=== PATIENT | female | born 1985 | race Caucasian/White ===

== ENCOUNTER 2016-05-01 16:15 | Observation (INO) | payer BC ==
[~2016-05-01] VITALS: Ht 165.1 cm; Wt 123.0 kg
[~2016-05-01 16:15] MED LIST: HYDR-4074 PO; IBUP-1724 PO; LEVO1TAB76 PO; LORA10TA62 PO; ONDA4TAB10 PO
[2016-05-01 16:25] VITALS: PULSE 100
[2016-05-01] MEDS ORDERED: LR 1,000 ML IV SCH ×3 (16:45→21:49)
[2016-05-01] MEDS: LR 1,000 ML IV SCH ×3 (16:57→22:48)
[2016-05-01 16:59] LABS: BLOOD, URINE NEGATIVE (NEGATIVE); COLOR,URINE YELLOW (YELLOW); LEUKOCYTE ESTERASE ,URINE TRACE (NEGATIVE); NITRITE,URINE NEGATIVE (NEGATIVE); UROBILINOGEN,URINE 0.2 EU/DL (NORMAL)
[2016-05-01 17:04] LABS: HCT - HEMATOCRIT 34.7 % (36-46); MEAN CORPUSCULAR HGB 32.3 UUG (26-34); MEAN CORPUSCULAR HGB CONC(MCHC 34.6 GM/DL (31-37); MEAN CORPUSCULAR VOLUME 93.5 UM3 (80-100); MEAN PLATELET VOLUME 10.1 UM3 (9.4-12.4); RED BLOOD COUNT 3.71 M/MM3 (4.00-5.20); WBC - WHITE BLOOD COUNT 16.1 T/MM3 (4.5-11.0)
[2016-05-01 17:08] LABS: ANION GAP 8 MEQ/L (5-15); BUN/CREATININE RATIO 8 RATIO (6-26); CALCIUM 9.3 MG/DL (8.4-10.2); CHLORIDE 109 MEQ/L (98-107); CO2 - CARBON DIOXIDE 20 MEQ/L (22-30); CREATININE 0.5 MG/DL (0.7-1.2); GLOMERULAR FILTRATION RATE 144; GLUCOSE 115 MG/DL (65-110); POTASSIUM 3.5 MEQ/L (3.6-5); SODIUM 137 MEQ/L (134-144)
[2016-05-01 17:19] LABS: BAND NEUTROPHILS # 0.5 T/MM3; NEUTROPHILS #(MANUAL)-ABSOLUTE 13.7 T/MM3 (1.8-7.7); TOTAL CELLS COUNTED 100 %
[2016-05-01] MEDS ORDERED: DiphenhydrAMINE 25 MG CAPSULE PO ONE (19:00)
[2016-05-01] MEDS: ACETAMINOPHEN 500 MG TABLET PO PRN (20:12)
[2016-05-01 21:29] VITALS: Ht 165.1 cm; Wt 123.0 kg
--- NOTE | 2016-05-01 21:31 | NUR ---
ADMIT: PT WAS ADMITTED TO MEDICAL UNIT BY WHEEL CHAIR FROM MATERNAL CHILD UNIT. PT IS A&OX3, ON RA, AND UP AT MATTHEW. VITAL SIGNS TAKEN, ADMISSION QUESTIONS ANSWERED, AND IV FLUIDS RUNNING.
[2016-05-01 21:43] VITALS: BP 95/47; PULSE 127; RESP 22; TEMP 99; O2SAT 96
--- NOTE | 2016-05-01 21:49 | NUR ---
PHYSICIAN COMMUNICATION Dr Dyer ordered current bag of IVF rate change from 125 ML/HR to bolus remainder of current bag at 999 ML/HR and then continue to infuse LR at rate of 125 ML/HR.
[2016-05-01] MEDS ORDERED: LR 1,000 ML IV ONE (21:50)
[2016-05-01 22:07] VITALS: PULSE 126
[2016-05-02 00:20] VITALS: BP 115/63; PULSE 109; RESP 22; TEMP 96.9; O2SAT 97
[2016-05-02] MEDS ORDERED: FAMO-137 PO (00:24)
[2016-05-02] MEDS ORDERED: CETI10CA19 PO (00:24)
[2016-05-02] MEDS ORDERED: PNV#1COM14 PO (00:24)
[2016-05-02] MEDS ORDERED: ALBU0.63 AEROSOL (00:24)
[2016-05-02 04:00] VITALS: BP 111/68; PULSE 101; RESP 20; TEMP 96.4; O2SAT 98
--- NOTE | 2016-05-02 05:19 | NUR ---
SHIFT SUMMARY: PT IS A&OX3, COOPERATIVE AND PLEASANT, ON RA, DENIES PAIN OR CONTRACTIONS, Q4 VITALS TAKEN, HOURLY ROUNDING, IV FLUIDS RUNNING (LR), SLEPT WELL DURING THE NIGHT, IS UP AT MATTHEW TO THE BATHROOM. CALL LIGHT WITHIN REACH.
[2016-05-02] MEDS: ACETAMINOPHEN 500 MG TABLET PO PRN (06:17)
--- NOTE | 2016-05-02 06:17 | NUR ---
TYLENOL: PT REQUESTED TYLENOL FOR BODY ACHES (4/10 PAIN LEVEL). WILL CONTINUE TO MONITOR. PT DENIES SOA, N/V.
[2016-05-02] MEDS: LR 1,000 ML IV SCH (06:54)
[2016-05-02 08:00] VITALS: BP 116/71; PULSE 100; RESP 20; TEMP 97.5; O2SAT 99
[2016-05-02] MEDS ORDERED: ALBU6.7H INH (08:05)
--- NOTE | 2016-05-02 11:26 | NUR ---
no co voiced Dr Dyer here dc iv and iv fluids dc instructions reviewed dc per ambulatory to home.
--- NOTE | 2016-05-04 16:06 | NUR ---
FOLLOW UP CALL ATTEMPT LEFT MESSAGE AT THIS TIME.
[2016-05-08] MEDS ORDERED: NITR100C4 PO (11:32)
== END 2016-05-02 10:46 | disposition home or self-care (01) ==
LOC: OBOBS 16:15 → MC 16:15 → OBOBS 19:10 → MED 21:31
PROVIDERS: ADMIT Obstetrics & Gynecology; ATTEND Obstetrics & Gynecology
DX: O99.89 Other specified diseases and conditions complicating pregnancy, childbirth and the puerperium (principal); R50.9 Fever, unspecified; O99.820 Streptococcus B carrier state complicating pregnancy; O99.513 Diseases of the respiratory system complicating pregnancy, third trimester; J45.990 Exercise induced bronchospasm; Z79.899 Other long term (current) drug therapy; Z3A.37 37 weeks gestation of pregnancy
CPT/HCPCS: 36415; 80048; 81003; 85025; 87086; 87147; 87186; 87486; 87581; 87633; 87798; 96360; 96361; 99218; J7120

== ENCOUNTER 2016-05-13 16:00 | Inpatient (IN) | payer BC ==
[~2016-05-13] VITALS: Ht 165.1 cm; Wt 121.0 kg
[~2016-05-13 16:00] MED LIST changes: +ALBU6.7H INH; +CETI10CA19 PO; +FAMO-137 PO; -HYDR-4074 PO; -IBUP-1724 PO; -LEVO1TAB76 PO; -LORA10TA62 PO; +NITR100C4 PO; -ONDA4TAB10 PO; +PNV#1COM14 PO
--- OUTSIDE RECORDS SUMMARY | 2016-05-14 16:15 | XMS REPORT | Continuity of Care Document ---
Author Author [facility] Organization [facility] Address Unknown Phone Unavailable Support Name Relationship Address Phone INEZ WHITLEY MD Caregiver Unknown Unavailable IKER RIOS MD Caregiver [address] [place] [address] Unavailable CINTHIA WORTHY Next Of Kin [address] [place] [address] Insurance Providers Guarantor Weston Worthy Address [address] [place] [id number] Email [email or web address] Policy Number [id number] Subscriber's Name Cinthia Worthy Relationship 01 Spouse Group Number [id number] Advance Directives Directive Response Recorded Date/Time Advanced Directives Type None 06/19/13 9:42am Ordered Resuscitation Status Full Code 06/19/13 8:28am Resuscitation Documents on File No 06/19/13 9:42am DPOA for Healthcare Only N 05/01/16 9:58pm Living Will No 05/01/16 9:58pm Problems Active Problems Medical Problem Onset Date Status Left ureteral calculus Unknown Acute Left ureteral calculus Unknown Acute Medications Current Home Medications Medication Dose Units Route Directions Days Qty Instructions Start Date Albuterol Sulfate (Proventil Hfa 90 Mcg/Actuation) 200 Puff/6.7 G Inha 1 Puff Inhalation Every 4 Hours as needed for Asthma 05/02/16 Cetirizine Hcl (Zyrtec) 10 Mg Capsule 1 Cap Oral Daily as needed for Prn Orders 05/02/16 Famotidine (Pepcid) 20 Mg Tablet 1 Tab Oral Daily as needed for Prn Orders 05/02/16 Pnv#75/Iron Fum/Fa/Om3/Dha/Epa (One A Day Dha Pack) 1 Each Combo..pkg 1 Oral One To Two Times A Day 30 Days 05/02/16 Past Home Medications Medication Directions Ordered Status Acetaminophen/Hydrocodone Bitart ([place] 7.5-325 Tablet) 1 Each Tablet, 1-2 Tab Oral Every 6 Hours as needed for Pain 10/27/13 Discontinued Ibuprofen 200 Mg Tablet, 2 Tab Oral As Needed 11/01/13 Discontinued Ondansetron (Ondansetron Odt) 4 Mg Tab.rapdis, 4 Mg Oral Q6h/0300,0900,1500, 2100 for Nausea &/Or Vomiting 10/27/13 Discontinued Social History Social History Problem Response Recorded Date/Time Onset Date Status Reason for Hospitalization fever 05/02/2016 11:12am Not Applicable Not Applicable Hx Substance Use No 10/31/2013 2:20pm Not Applicable Not Applicable Hx Alcohol Use No 10/31/2013 2:20pm Not Applicable Not Applicable Has the pt used tobacco in the last 12 months No 10/31/2013 2:20pm Not Applicable Not Applicable Tobacco Usage none 10/29/2013 8:37pm Not Applicable Not Applicable Query Response Start Date Stop Date Smoking Status Never smoker Hospital Discharge Instructions Instructions: Care Instructions: I was in the hospital because (patient own words): I WAS RUNNING A FEVER, CHILLS, BODY ACHES - [facility] SAID TO COME IN Discharge Diet: General diet Discharge Activity: No heavy lifting more than 10 lbs. Follow Up Appointments: Follow up with Dr. Rios as scheduled. Pending Lab / Results: No Pending Lab Expected Signs/Symptoms: None Notify Physician If: you have any high grade fever, chest pain, shortness of breath, vaginal bleeding, decreased movement. During Business Hours:: Please call the physician's office at [phone]. After Business Hours:: Please call [phone] and have the coal cutting machine operator page the physician. Pain Management/Treatment: Tylenol as needed. Wound/Incision Care: None Condition at time of discharge: Good Plan of Care Discharge Date 05/02/16 10:46am Disposition 01 DISCHARGED HOME, SELF-CARE Prescriptions See Medication Section Care Plan and Goals See Discharge Instructions Section Functional Status Query Response Date Recorded Mobility Status Ambulatory May 01, 2016 9:30pm Assistive Devices None May 01, 2016 9:30pm Activity Limitations None May 01, 2016 9:30pm Feeding Ability Independent May 01, 2016 9:30pm Toileting Ability Independent May 01, 2016 9:30pm Grooming Ability Independent May 01, 2016 9:30pm Dressing Ability Independent May 01, 2016 9:30pm Driving Ability Independent May 01, 2016 9:30pm Housework Ability Independent May 01, 2016 9:30pm Meal Preparation Ability Independent May 01, 2016 9:30pm Stair Climbing Ability Independent May 01, 2016 9:30pm Ability to complete ADL's impeded by No change May 01, 2016 9:58pm Cognitive/Perceptual Impairments None May 01, 2016 9:30pm Preferred Method of Learning Reading Listening May 01, 2016 9:30pm Allergies, Adverse Reactions, Alerts No known allergies. Immunizations Query Response on File Recorded Date/Time Hx Influenza Vaccination Y NOVEMBER 2015 05/01/16 10:02pm Hx Pneumococcal Vaccination N NOT SURE 05/01/16 10:02pm Hx Tetanus, Diptheria, Pertussis Y given at [facility] 04-26-13 10/27/13 3:07pm Hx Influenza Vaccination Y NOVEMBER 2015 05/01/16 10:02pm Hx Tetanus, Diptheria, Pertussis Y given at [facility] 04-26-13 10/27/13 3:07pm Vital Signs Acute Vital Signs Vital Response Date/Time Temperature (Fahrenheit) 97.5 deg F (96.8 - 99.1) 05/02/2016 8:00am Temperature (Calculated Celsius) 36.23403 degrees C (36.0 - 37.3) 05/02/2016 8:00am Pulse Rate (adult) 100 bpm (60 - 100) 05/02/2016 8:00am Respiratory Rate 20 breaths/min (10 - 20) 05/02/2016 8:00am O2 Sat by Pulse Oximetry 99 % (90 - 100) 05/02/2016 8:00am Oxygen Delivery Method Room Air 05/02/2016 8:00am Blood Pressure 116/71 mm Hg 05/02/2016 8:00am Blood Pressure Source Automatic Cuff 05/02/2016 8:00am Height (Feet) 5 feet 05/01/2016 9:29pm Height (Inches) 5.00 inches 05/01/2016 9:29pm Weight (Kilograms) 123.000 kg 05/01/2016 9:29pm Body Mass Index (BMI) 45.1 05/01/2016 9:29pm Results Laboratory Results Test Name Result Units Flags Reference Collection Date/Time Result Date/ Time Comments White Blood Count 16.1 T/MM3 H 4.5-11.0 05/01/2016 4:52pm 05/01/2016 5: 11pm Red Blood Count 3.71 M/MM3 L 4.00-5.20 05/01/2016 4:52pm 05/01/2016 5: 11pm Hemoglobin 12.0 GM/DL 12-16 05/01/2016 4:52pm 05/01/2016 5:11pm Hematocrit 34.7 % L 36-46 05/01/2016 4:52pm 05/01/2016 5:11pm Mean Corpuscular Volume 93.5 UM3 80-100 05/01/2016 4:52pm 05/01/2016 5: 11pm Mean Corpuscular Hemoglobin 32.3 UUG 26-34 05/01/2016 4:52pm 2016 5:11pm Mean Corpuscular Hemoglobin Concent 34.6 GM/DL 31-37 05/01/2016 4:52pm 05/01/2016 5:11pm RDW Standard Deviation 45.2 FL 36.9-50.2 05/01/2016 4:52pm 05/01/2016 5 :11pm Platelet Count 204 T/MM3 130-400 05/01/2016 4:52pm 05/01/2016 5:11pm Mean Platelet Volume 10.1 UM3 9.4-12.4 05/01/2016 4:52pm 05/01/2016 5: 11pm Neutrophils % (Manual) 85.0 % H 33-66 05/01/2016 4:52pm 05/01/2016 5: 19pm Band Neutrophils % 3.0 % 0-6 05/01/2016 4:pm 05/01/2016 5:19pm Lymphocytes % (Manual) 6.0 % L 23-45 05/01/2016 4:52pm 05/01/2016 5: 19pm Monocytes % (Manual) 6.0 % 0-9.0 05/01/2016 4:pm 05/01/2016 5:19pm Band Neutrophils # 0.5 T/MM3 05/01/2016 4:52pm 05/01/2016 5:19pm Absolute Neutrophils (Manual) 13.7 T/MM3 H 1.8-7.7 05/01/2016 4:52pm 5:19pm Lymphocytes # (Manual) 1.0 T/MM3 1-4.8 05/01/2016 4:52pm 05/01/2016 5: 19pm Monocytes # (Manual) 1.0 T/MM3 H 0-0.8 05/01/2016 4:52pm 05/01/2016 5: 19pm Red Cell Morphology Comment NORMAL 05/01/2016 4:52pm 05/01/2016 5: 19pm Icterus Index < 2 0-7 05/01/2016 4:pm 05/01/2016 5:08pm Chemistry Specimen Hemolysis < 15 0-25 05/01/2016 4:52pm 05/01/2016 5 :08pm 0-25: Specimen Exhibited No Hemolysis. Turbidity < 20 0-20 05/01/2016 4:pm 05/01/2016 5:08pm Sodium Level 137 MEQ/L 134-144 05/01/2016 4:pm 05/01/2016 5:08pm Potassium Level 3.5 MEQ/L L 3.6-5 05/01/2016 4:05/01/2016 5:08pm Chloride Level 109 MEQ/L H 98-107 05/01/2016 4:pm 05/01/2016 5:08pm Carbon Dioxide Level 20 MEQ/L L 22-30 05/01/2016 4:pm 05/01/2016 5: 08pm Anion Gap 8 MEQ/L 5-15 05/01/2016 4:pm 05/01/2016 5:08pm Blood Urea Nitrogen 4.0 MG/DL L 7-17 05/01/2016 4:pm 05/01/2016 5: 08pm Creatinine 0.5 MG/DL L 0.7-1.2 05/01/2016 4:05/01/2016 5:08pm BUN/Creatinine Ratio 8 RATIO 6-26 05/01/2016 4:pm 05/01/2016 5:08pm Glomerular Filtration Rate Calc 144 05/01/2016 4:pm 05/01/2016 5: 08pm Glucose Level 115 MG/DL H 65-110 05/01/2016 4:52pm 05/01/2016 5:08pm Calculated Osmolality 262 MOSM/KG 261-280 05/01/2016 4:52pm 05/01/2016 5:08pm Calcium Level 9.3 MG/DL 8.4-10.2 05/01/2016 4:52pm 05/01/2016 5:08pm Adenovirus (PCR) NEGATIVE NEGATIVE 05/01/2016 4:47pm 05/01/2016 6: 28pm Coronavirus Type 229E (PCR) NEGATIVE NEGATIVE 05/01/2016 4:47pm 05/01 6:28pm Coronavirus Type HKU1 (PCR) NEGATIVE NEGATIVE 05/01/2016 4:47pm 05/01 6:28pm Coronavirus Type NL63 (PCR) NEGATIVE NEGATIVE 05/01/2016 4:47pm 05/01 6:28pm Coronavirus Type OC43 (PCR) NEGATIVE NEGATIVE 05/01/2016 4:47pm 05/01 6:28pm Human Metapneumovirus (PCR) NEGATIVE NEGATIVE 05/01/2016 4:47pm 05/01 6:28pm Enterovirus/Rhinovirus (PCR) NEGATIVE NEGATIVE 05/01/2016 4:47pm 6:28pm Influenza Virus Type A (PCR) NEGATIVE NEGATIVE 05/01/2016 4:47pm 6:28pm Influenza Virus Type B (PCR) NEGATIVE NEGATIVE 05/01/2016 4:47pm 6:28pm Parainfluenza Type 1 (PCR) NEGATIVE NEGATIVE 05/01/2016 4:47pm 2016 6:28pm Parainfluenza Type 2 (PCR) NEGATIVE NEGATIVE 05/01/2016 4:47pm 2016 6:28pm Parainfluenza Type 3 (PCR) NEGATIVE NEGATIVE 05/01/2016 4:47pm 2016 6:28pm Parainfluenza Type 4 (PCR) NEGATIVE NEGATIVE 05/01/2016 4:47pm 2016 6:28pm Respiratory Syncytial Virus (PCR) NEGATIVE NEGATIVE 05/01/2016 4:47pm 05/01/2016 6:28pm Bordetella parapertussis DNA (PCR) NEGATIVE NEGATIVE 05/01/2016 4: 47pm 05/01/2016 6:28pm Chlamydia pneumoniae DNA (PCR) NEGATIVE NEGATIVE 05/01/2016 4:47pm 6:28pm Mycoplasma pneumoniae (PCR) NEGATIVE NEGATIVE 05/01/2016 4:47pm 05/01 6:28pm Urine Collection Type CLEANCATCH-MIDSTREAM 05/01/2016 4:50pm 2016 4:59pm Urine Color YELLOW YELLOW 05/01/2016 4:50pm 05/01/2016 4:59pm Urine Turbidity SL CLOUDY CLEAR 05/01/2016 4:50pm 05/01/2016 4:59pm Urine Specific [place] <=1.005 L 1.015-1.025 05/01/2016 4:50pm 2016 4:59pm Urine pH 6.0 5.0-8.0 05/01/2016 4:50pm 05/01/2016 4:59pm Urine Leukocyte Esterase TRACE A NEGATIVE 05/01/2016 4:50pm 2016 4:59pm Urine Nitrite NEGATIVE NEGATIVE 05/01/2016 4:50pm 05/01/2016 4:59pm Urine Protein NEGATIVE NEGATIVE 05/01/2016 4:50pm 05/01/2016 4:59pm Urine Glucose (UA) NEGATIVE NEGATIVE 05/01/2016 4:50pm 05/01/2016 4: 59pm Urine Ketones 3+ A NEGATIVE 05/01/2016 4:50pm 05/01/2016 4:59pm Urine Urobilinogen 0.2 EU/DL NORMAL 05/01/2016 4:50pm 05/01/2016 4: 59pm Urine Bilirubin NEGATIVE NEGATIVE 05/01/2016 4:50pm 05/01/2016 4: 59pm Urine Blood NEGATIVE NEGATIVE 05/01/2016 4:50pm 05/01/2016 4:59pm Urinalysis Comment MICROSCOPIC NOT IND. 05/01/2016 4:50pm 2016 4:59pm Microbiology Results Procedure Source Organism/Result Collection Date/Time Result Date/Time Result Status Urine Culture Urine, Clean Catch-Midstream STREP AGALACTIAE - (GROUP B) 4:50pm 05/02/2016 12:50pm Preliminary Procedures No known history of procedures. Encounters Encounter Location Arrival/Admit Date Discharge/Depart Date Attending Provider Discharged Inpatient (obs) [facility] 05/01/16 7:10pm 05/02/16 10 :46am IKER RIOS MD
[2016-05-14] MEDS ORDERED: LR 1,000 ML IV PRN (16:17)
[2016-05-14] MEDS ORDERED: MAG-AL + SIM LIQUID 30 ML UDC PO PRN (16:30)
[2016-05-14] MEDS ORDERED: ZOLPIDEM 5 MG TABLET PO PRN (16:30)
[2016-05-14] MEDS ORDERED: ACETAMINOPHEN 500 MG TABLET PO PRN (16:30)
[2016-05-14] MEDS ORDERED: CALCIUM CARBONATE 500mg Chewable TAB PO PRN (16:30)
[2016-05-14] MEDS ORDERED: LIDOCAINE 1% (10mg/ml) 2ml SDV ID PRN (16:30)
[2016-05-14 16:43] LABS: HCT - HEMATOCRIT 36.6 % (36-46); HGB - HEMOGLOBIN 12.4 GM/DL (12-16); MEAN CORPUSCULAR HGB CONC(MCHC 33.9 GM/DL (31-37); MEAN CORPUSCULAR VOLUME 94.3 UM3 (80-100); MEAN PLATELET VOLUME 9.7 UM3 (9.4-12.4); RED BLOOD COUNT 3.88 M/MM3 (4.00-5.20); WBC - WHITE BLOOD COUNT 9.8 T/MM3 (4.5-11.0)
[2016-05-14] MEDS ORDERED: DINOPROSTONE 10 MG VAGINAL INSERT VAGINALLY ONE (17:00)
[2016-05-14] MEDS ORDERED: DiphenhydrAMINE 25 MG CAPSULE PO PRN (17:00)
[2016-05-14] MEDS ORDERED: TERBUTALINE 1 MG/ML INJECTION SQ PRN (17:00)
[2016-05-14 17:10] VITALS: BP 120/77; PULSE 106; RESP 16; O2SAT 98
--- NOTE | 2016-05-14 17:29 | ANESOB ---
Epidural/ Date/Time DATE: 05/14/16 TIME: 17:24 Preop Diagnosis , induction LGA Procedure: Labor Epidural Plan: Epidural, Spinal, GETA Height: 5 ' 5.00 " Weight: 265.000 kg BMI: kg/m2 Blood Pressure: 120/77 Heart Rate: 116 Respiratory Rate: 20 SaO2: 98 NPO since: mn P:1 Heart Rate: 144 Medications & Allergies Inpatient Medications Current Medications Medications (Trade) Dose Ordered Sig/Jerilyn Start Time Stop Time Status Last Admin Dose Admin Acetaminophen/ Hydrocodone Bitart ([place] 5/325) 1-2 tabs every 4 hours ... Q4H PRN 05/14/16 16:30 Zolpidem Tartrate (AMBIEN 5mg) 1-2 Tabs HS PRN 05/14/16 16:30 Lidocaine HCl 0.2 mg 0.2 mg PRN PRN 05/14/16 16:30 Lactated Ringer's (Lactated Ringers) 1,000 ml @ 0 mls/hr Q0M PRN 05/14/16 16:17 Acetaminophen (Tylenol Extra Strength) 1-2 TABS = 500-1,000 MG Q4H PRN 05/14/16 16:30 Al Hydroxide/Mg Hydroxide (Maalox) 30 ml Q4H PRN 05/14/16 16:30 Calcium Carbonate (TUMS Regular Strength) 1-2 TABS Q2H PRN 05/14/16 16:30 Diphenhydramine HCl (Benadryl) 50 mg HS PRN 05/14/16 17:00 Terbutaline Sulfate (Brethine) 0.25 mg PRN PRN 05/14/16 17:00 Albuterol Sulfate (Proventil HFA 90 mcg/actuation) 200 Puff/6.7 G Inha, 1 PUFF INH Q4H PRN for ASTHMA, (Reported) Last Taken: on 04/24/16 1500 Cetirizine HCl (Zyrtec) 10 Mg Capsule, 1 CAP PO DAILY PRN for PRN ORDERS, (Reported) Last Taken: on 05/07/16 2100 Famotidine (Pepcid) 20 Mg Tablet, 1 TAB PO DAILY PRN for PRN ORDERS, (Reported) Last Taken: on 05/13/16 0700 Pnv#75/Iron Fum/FA/Om3/Dha/Epa (One A Day Dha Pack) 1 Each Combo..pkg, 1 PO 1-2XD, (Reported) Last Taken: on 05/14/16 0900 Discontinued Medications Nitrofurantoin Monohyd/M-Cryst (Macrobid 100 mg Capsule) 100 Mg Capsule, 1 CAP PO BIDWM, (Reported) Take 2 (100 mg) capsules, by mouth, twice daily with meals. Last Taken: on 05/08/16 0900 Coded Allergies: No Known Allergies (Unverified , 05/08/16) Medical/Surgical History Anesthesia PMH: Reports: Asthma, Obesity (morbidly obese), Other (history of jaw surgery.) Smoking Status: Never smoker Does patient use chewing tobac: No Second Hand Exposure: No Substance Use Type: does not use Alcohol Intake: none Anesthesia Adverse Reactions: FOUND none Family Hx of Anesthesia Advers: none Hx of Motion Sickness: No Complications During : Yes Pertinent Findings Laboratory Tests 05/14/16 16:40 Physical Exam Respiratory: Bilat breath sounds equal, Lungs clear Cardiovascular: Regular rate, rhythm Airway Assessment Mallampati Score: II TMD: 3 Fingerbreadths Neck Extension: Fair Teeth: Other (hsitory of jaw surgery) Overall Assessment: May Be Diff Intubation (small mouth opening, jaw surgery with plates) ASA: 3 Discussion Discussed risks/options/alternatives of anesthesia. Patient consents. Nursing pain assessment noted. Present for Discussion: Present: Family Member Attestation Statement Prior to the delivery of any anesthetic medication, I examined the patient, developed the plan, obtained the patient's consent and discussed the risk and benefits of the procedure with the patient/guardian. If the note happens to be signed after anesthesia start time, it is only due to providing efficient care of the patient and documenting at a time when the computer is available. CINTHIA CERDA CRNA May 14, 2016 17:27
[2016-05-14] MEDS ORDERED: AMPICILLIN 2 G in NORMAL SALINE 100 ML IV ONE (20:00)
[2016-05-14] MEDS: AMPICILLIN 1 G in NORMAL SALINE 100 ML IV SCH (23:39)
[2016-05-15] MEDS: AMPICILLIN 1 G in NORMAL SALINE 100 ML IV SCH ×2 (03:29→08:47)
[2016-05-15] MEDS ORDERED: D5LR 1,000 ML IV PRN (04:00)
[2016-05-15] MEDS ORDERED: OXYTOCIN 30 UNIT in D5LR 500 ML SCH (04:00)
[2016-05-15] MEDS ORDERED: DiphenhydrAMINE 50 MG/ML INJECTION IV PRN (09:15)
[2016-05-15] MEDS ORDERED: ROPIVACAINE 1% 200 MG, SUFENTANIL 50 MCG in NORMAL SALINE 80 ML EPI PRN (09:15)
[2016-05-15] MEDS ORDERED: NALOXONE 0.4mg/ml INJECTION IV PRN (09:15)
[2016-05-15] MEDS ORDERED: ONDANSETRON 4mg/2ml INJECTION IV PRN ×2 (09:15→19:30)
[2016-05-15] MEDS ORDERED: AMPICILLIN 1 G in NORMAL SALINE 100 ML IV SCH (10:30)
[2016-05-15] MEDS ORDERED: CITRIC ACID/SODIUM CITRATE 30 ML PO ONE (12:30)
[2016-05-15] MEDS ORDERED: FAMOTIDINE 20mg IVPB 50 ML IV ONE (12:30)
[2016-05-15] MEDS ORDERED: CEFAZOLIN 2 GM in D5W 50ml 2 GM in D5W 50 ML IV ONE ×2 (12:30)
[2016-05-15] MEDS ORDERED: CEFAZOLIN 1 G in NORMAL SALINE 100 ML IV ONE (12:30)
[2016-05-15] MEDS ORDERED: CEFAZOLIN 2 GM in D5W 50ml 50 ML IV ONE (12:45)
[2016-05-15] MEDS ORDERED: MORPHINE SULFATE PF 5mg/10ml VL (DURAMORPH) ONE (13:14)
[2016-05-15] MEDS ORDERED: OXYTOCIN 30 UNIT in D5LR 500 ML IV SCH (13:35)
[2016-05-15 13:41] VITALS: RESP 20; O2SAT 98
[2016-05-15] MEDS: D5LR 1,000 ML IV SCH ×2 (13:41→16:36)
[2016-05-15] MEDS ORDERED: HYDROCORTISONE 2.5% CREAM 30 GM RECTALLY PRN (13:45)
[2016-05-15] MEDS ORDERED: MILK OF MAGNESIA 30 ML SUSP PO PRN (13:45)
[2016-05-15] MEDS ORDERED: POM ALBUTEROL HFA INHALER 8gm ORAL INH PRN (13:45)
[2016-05-15] MEDS: IBUPROFEN 800 MG TABLET PO PRN ×2 (15:18→22:43)
[2016-05-15] MEDS: HYDROCODONE/APAP 5 mg/325 mg TABLET PO PRN (15:24)
--- NOTE | 2016-05-15 17:05 | ANESPO ---
Post-Op Note Date 05/15/16 Time: 17:05 Status Pt Participated in Evaluation: Pt participated in person Vital Signs Date Time Temp Pulse Resp B/P Pulse Ox O2 Delivery O2 Flow Rate FiO2 05/15/16 13:41 20 98 05/15/16 13:13 Room Air 05/14/16 17:10 106 120/77 Respiratory Function: Airway patent Cardiovascular Function: Regular pulse Mental Status: Alert/oriented Pain Level Intensity: 0 Hydration: Taking po fluids Complications during Recovery None apparent Follow-Up Instructions Instructions Per Surgeon YANELY MAYES CRNA May 15, 2016 17:05
[2016-05-15 18:45] VITALS: BP 110/65; PULSE 78; RESP 16; TEMP 98.4; O2SAT 98
[2016-05-15 18:59] LABS: HGB - HEMOGLOBIN 11.9 GM/DL (12-16); MEAN CORPUSCULAR HGB 32.2 UUG (26-34); MEAN CORPUSCULAR VOLUME 94.6 UM3 (80-100); RED BLOOD COUNT 3.7 M/MM3 (4.00-5.20); WBC - WHITE BLOOD COUNT 14.3 T/MM3 (4.5-11.0)
[2016-05-15] MEDS: SIMETHICONE 80 MG CHEWABLE TABLET PO CHEW SCH ×2 (19:51→22:00)
[2016-05-15 22:30] VITALS: BP 108/63; PULSE 77; RESP 16; TEMP 98.3; O2SAT 96
--- NOTE | 2016-05-15 23:04 | NUR ---
Urine Output: RN emptied duran catheter after four hours at 2245. Urine output-100 ml of concentrated urine. Pitocin infusion turned off at 2044. D5LR continues to infuse at 100 ml/hr. Pt. has consumed oral fluids throughout the shift. RN started 500 ml bolus from LR bag. Will continue to monitor.
[2016-05-16 01:00] VITALS: BP 115/69; PULSE 78; RESP 16; TEMP 98.2; O2SAT 100
--- NOTE | 2016-05-16 01:14 | NUR ---
Output: RN assesses urine output via duran catheter after two hours- 125 ml out. Urine still concentrated in appearance. D5LR continues to infuse at 100 ml/hr. Will continue to monitor.
--- NOTE | 2016-05-16 02:43 | NUR ---
Shift summary: VSS. Fundus is firm with small lochia. Incision dressing is dry and intact. SCD's and pulse oximeter remain on. Pt. continues to receive D5LR @ 100 ml/hr for urine output (see previous notes). Pt. is tolerating regular diet and fluids. Pt. had mild nausea at beginning of shift. Nausea controlled with Zofran 4 mg. Pain controlled with Ibuprofen 800 mg and [place] 5/325 mg. Pericare provided late last evening. Pt. stood at bedside and walked around room for half an hour. supportive and at bedside. Attentive to infant needs.
--- NOTE | 2016-05-16 03:20 | NUR ---
Pt requested to take off SCDs for a few hours while she sleeps. Stated "It's difficult for me to relax while they are on." RN removed SCD sleeves, will reapply later in AM.
[2016-05-16 06:00] VITALS: BP 113/71; PULSE 69; RESP 16; TEMP 97.5; O2SAT 100
--- NOTE | 2016-05-16 08:52 | OPNOTEF ---
DATE OF OPERATION 05/15/2016 PREOPERATIVE DIAGNOSES 1. A 30-year-old 2, para 1, at 39 weeks gestational age. 2. Suspected macrosomia. 3. Arrest of descent. POSTOPERATIVE DIAGNOSES 1. A 30-year-old 2, para 1, at 39 weeks gestational age. 2. Suspected macrosomia. 3. Arrest of descent. PROCEDURE Primary low transverse section. SURGEON Dr. Anabella Delong. INDUSTRIAL INSULATOR Laine Dyer MD ANESTHESIA Epidural by DESTINI Zavala. COMPLICATIONS None. EBL 700 mL. FINDINGS Viable female infant, cephalic OP position, clear fluids. Apgars 8, 9. Weight 4562 grams. Name: "Esther." Normal-appearing uterus, tubes, and ovaries. INDICATIONS Rachel came in last evening for Lockett bulb cervical ripening due to suspected macrosomia. We had a long discussion in clinic last week about attempting an induction versus scheduling a primary . She has previously had an 8-pound baby vaginally, so she wanted to try for a vaginal delivery. This morning she was started on Pitocin. Her membranes were ruptured artificially returning clear fluids. She received an epidural. She progressed quickly throughout labor to complete dilation. She pushed for two hours and never descended past +2 station. I already told her I would not do an operative vaginal delivery due to prolonged descent. She was ready for a at this point. DESCRIPTION OF PROCEDURE The patient was taken back to the operating room where her epidural was brought up to adequate surgical levels. She already had a Lockett catheter in place. She was prepared and draped in the normal sterile fashion. A Pfannenstiel skin incision was made 2 cm above the symphysis pubis and carried down to the fascia. The fascia was incised in the midline and extended laterally with the Bailey scissors. The fascia was elevated and the underlying rectus muscles were dissected off. The peritoneum was entered with a combination of blunt and sharp dissection. This was extended superiorly and inferiorly with good visualization of the bladder. The bladder blade was inserted. Bladder flap was created sharply with the Metzenbaum scissors, and the bladder blade was reinserted. The lower uterine segment was incised in a transverse fashion layer by layer with the scalpel and bluntly extended. The infant's head was deeply wedged in the pelvis, and I could not reach the top of the head. One of the nurses pushed the head up vaginally until I could reach it. The head was then delivered atraumatically. The nose and mouth were suctioned. The cord was clamped and cut. The was handed to Dr. Perez, who was asked to attend due to suspected macrosomia and the unscheduled surgery. The placenta delivered spontaneously. The uterus was exteriorized and cleared of all clots and debris. She had a small right extension. I closed the left half of the uterus in a running locked manner with [address] Dyer then closed the extension and the rest of the right half of the uterine incision. Good hemostasis was noted. She had a small right paratubal cyst that was removed with the cautery. The uterus was returned to the abdomen. The gutters were cleared of all clots and debris. The uterine incision was inspected one final time and still noted to be hemostatic. The peritoneum was closed with running 2-0 Vicryl. Hemostasis was obtained in the rectus muscles with the cautery. The fascia was closed with running 0 Vicryl. Hemostasis was obtained in the subcutaneous tissue with cautery. Michael's fascia was closed with running 2-0 chromic. The skin was closed with 4-0 Vicryl in a subcuticular manner with a Chuck needle. Steri-Strips were placed. Sponge, sharp, and instrument counts were correct. The patient tolerated the procedure well and was taken to the recovery room in good condition. JENELLE
[2016-05-16] MEDS: SIMETHICONE 80 MG CHEWABLE TABLET PO CHEW SCH ×4 (09:11→22:14)
[2016-05-16] MEDS: DOCUSATE CALCIUM 240 MG CAPSULE PO SCH (09:11)
[2016-05-16] MEDS: D5LR 1,000 ML IV SCH ×2 (09:35→19:35)
[2016-05-16] MEDS: IBUPROFEN 800 MG TABLET PO PRN ×2 (10:19→18:49)
[2016-05-16 10:30] VITALS: BP 116/66; PULSE 86; RESP 14; TEMP 98.1; O2SAT 97
--- NOTE | 2016-05-16 11:35 | PNPDOC ---
Progress Note PPD1 Rubella: Immune GBS: Positive Blood Type:A pos Subjective 05/16/16 Lochia: Minimal Pain: Controlled Voiding: Voiding Nausea and Vomiting: No Nausea/Vomiting Objective Vital Signs Date Time Temp Pulse Resp B/P Pulse Ox O2 Delivery O2 Flow Rate FiO2 05/16/16 10:30 98.1 86 14 116/66 97 Room Air General: Alert and Oriented Abdomen: Fundus Firm, Non-tender Incision: Clean/Dry/Intact, No Erythema Laboratory Item Value Date Time Hemoglobin 12.4 GM/DL 05/14/16 1640 Hemoglobin 11.9 GM/DL L 05/15/16 1852 Assessment SP, Primary C/S Plan Routine Care, Continue PNV INEZ WHITLEY MD May 16, 2016 11:35
[2016-05-16 14:16] VITALS: BP 98/63; PULSE 80; RESP 16; TEMP 98.1; O2SAT 99
--- NOTE | 2016-05-16 14:27 | NUR ---
Shift Summary: Patient doing well, VSS and pain well controlled with oral pain medications. Lockett catheter removed in AM, patient has voided successfully since removal. Dressing removed, incision open to air, no signs of infection noted. Patient ambulates without difficulty, SCDs DCd. Patient is tolerating oral fluids and eating without difficulty, pt has showered. well, using nipple shield brought from home. is supportive and at bedside for assistance. Good bonding noted with infant.
[2016-05-16 18:53] VITALS: BP 115/68; PULSE 89; RESP 18; TEMP 98.6; O2SAT 97
--- NOTE | 2016-05-16 20:15 | NUR ---
discussed with mother. mother reports that it is going ok, will latch on but nursing is becoming more painful. mother has been using a nipple shield off and on. infant has not seemed content after some feedings so they have been supplementing with formula as needed. mother questions whether she should start pumping or not, educated on need for pumping regularly when using nipple shield or supplementing with formula. patient stated understanding. at this time patient would like to wait and use her own pump tomorrow. discussed importance of hand expression for 5-10 minutes each breast after every feeding. duran cup taken into room. mother stated understanding. will continue to monitor and educate.
[2016-05-16 22:16] VITALS: BP 125/69; PULSE 82; RESP 16; TEMP 97.4; O2SAT 97
--- NOTE | 2016-05-17 00:57 | NUR ---
Chart Check 24 hour chart check completed
[2016-05-17] MEDS: HYDROCODONE/APAP 5 mg/325 mg TABLET PO PRN ×2 (01:16→10:51)
[2016-05-17 01:20] VITALS: BP 123/75; PULSE 78; RESP 18; TEMP 96.7; O2SAT 98
--- NOTE | 2016-05-17 03:51 | NUR ---
shift summary VSS, fundus firm, lochia scant. patient performing all cares for self and . going ok, using a nipple shield at times. discussed importance of skin to skin and hand expression after feedings. ibuprofen and norco administered for pain. patient denies further needs or complaints.
[2016-05-17] MEDS: IBUPROFEN 800 MG TABLET PO PRN (05:46)
[2016-05-17 05:59] VITALS: BP 135/77; PULSE 83; RESP 16; TEMP 98.3; O2SAT 98
--- NOTE | 2016-05-17 08:32 | PNPDOC ---
Progress Note PPD2 Rubella: Immune GBS: Positive Blood Type:A pos Subjective 05/17/16 Lochia: Minimal Pain: Controlled Voiding: Voiding Nausea and Vomiting: No Nausea/Vomiting Objective Vital Signs Date Time Temp Pulse Resp B/P Pulse Ox O2 Delivery O2 Flow Rate FiO2 05/17/16 05:59 98.3 83 16 135/77 98 Room Air General: Alert and Oriented Abdomen: Fundus Firm, Non-tender, Soft Incision: Clean/Dry/Intact, No Erythema Assessment SP, Primary C/S Plan Routine Care, Discharge Home (pt highly desires d/c home today instead of tomorrow), Continue PNV INEZ WHITLEY MD May 17, 2016 08:31
[2016-05-17] MEDS ORDERED: IBUP-1547 PO (08:35)
[2016-05-17] MEDS ORDERED: DOCU-168 PO (08:35)
[2016-05-17] MEDS ORDERED: HYDR-4246 PO (08:35)
[2016-05-17 08:49] VITALS: BP 110/65; PULSE 85; RESP 16; TEMP 98.5; O2SAT 98
[2016-05-17] MEDS: DOCUSATE CALCIUM 240 MG CAPSULE PO SCH (09:12)
[2016-05-17] MEDS: SIMETHICONE 80 MG CHEWABLE TABLET PO CHEW SCH ×2 (09:12→13:00)
--- NOTE | 2016-05-17 15:11 | NUR ---
SHIFT SUMMARY VSS. FUNDUS FIRM, LOCHIA SCANT. ABDOMINAL BINDER. PERFORMS OWN PERICARE. PAIN CONTROLLED WITH IBUPROFEN 800MG AND NORCO 5/325MG. TOLERATED REGULAR DIET. BREAST FEEDING WELL X2. PROVIDED ALL BABY CARES. DISCHARGED HOME.
== END 2016-05-17 14:38 | disposition home or self-care (01) | DRG 765 ==
LOC: MC 05-14 16:10
PROVIDERS: ADMIT Obstetrics & Gynecology; ATTEND Obstetrics & Gynecology
PROC: 0UQ90ZZ Repair Uterus, Open Approach (ICD-10-PCS; 2016-05-15)
PROC: 0UB50ZZ Excision of Right Fallopian Tube, Open Approach (ICD-10-PCS; 2016-05-15)
PROC: 3E033VJ Introduction of Other Hormone into Peripheral Vein, Percutaneous Approach (ICD-10-PCS; 2016-05-15)
PROC: 10907ZC Drainage of Amniotic Fluid, Therapeutic from Products of Conception, Via Natural or Artificial Opening (ICD-10-PCS; 2016-05-15)
PROC: 10D00Z1 Extraction of Products of Conception, Low, Open Approach (ICD-10-PCS; principal; 2016-05-15 12:54)
DX: O62.1 Secondary uterine inertia (principal); Z68.41 Body mass index [BMI] 40.0-44.9, adult; O63.1 Prolonged second stage (of labor); O36.63X0 Maternal care for excessive fetal growth, third trimester, not applicable or unspecified; O34.83 Maternal care for other abnormalities of pelvic organs, third trimester; N83.8 Other noninflammatory disorders of ovary, fallopian tube and broad ligament; O32.8XX0 Maternal care for other malpresentation of fetus, not applicable or unspecified; O99.824 Streptococcus B carrier state complicating childbirth; O99.214 Obesity complicating childbirth; E66.9 Obesity, unspecified; Z3A.38 38 weeks gestation of pregnancy; Z37.0 Single live birth
CPT/HCPCS: 36415; 85027; 86850; 86900; 86901; 99464

== ENCOUNTER 2016-05-29 11:08 | Inpatient (IN) | payer BC ==
[~2016-05-29] VITALS: Ht 165.1 cm; Wt 110.8 kg
[~2016-05-29 11:08] MED LIST changes: +DOCU-168 PO; +HYDR-4246 PO; +IBUP-1547 PO; -NITR100C4 PO
--- OUTSIDE RECORDS SUMMARY | 2016-05-29 11:13 | XMS REPORT | Continuity of Care Document ---
Author Author [facility] Organization [facility] Address Unknown Phone Unavailable Support Name Relationship Address Phone INFECTION, CONTROL Caregiver [address] [place] [address] [place] [address] Unavailable CINTHIA CAMACHO Next Of Kin [address] [address] Insurance Providers Guarantor Weston Camacho Address [address] [place] [id number] Email [email or web address] Policy Number [id number] Subscriber's Name Cinthia Camacho Relationship 01 Spouse Group Number [id number] Advance Directives Directive Response Recorded Date/Time Advanced Directives Type None 06/19/13 9:42am Ordered Resuscitation Status Full Code 06/19/13 8:28am Resuscitation Documents on File No 06/19/13 9:42am Problems Active Problems Medical Problem Onset Date [...] Daily as needed for Prn Orders 05/02/16 Docusate Sodium (Colace) 100 Mg Capsule 1 Cap Oral Twice A Day for Stool Softening 30 Capsule 05/17/16 Famotidine (Pepcid) 20 Mg Tablet 1 Tab Oral Daily as needed for Prn Orders 05/02/16 Hydrocodone/Acetaminophen ([place] 5-325 Tablet) 5-325 Tablet 1-2 Tab Oral Every 4 Hours as needed for Pain 30 Tablet 05/17/16 Ibuprofen 800 Mg Tablet 800 Mg Oral Every 8 Hours as needed for Pain 60 Tablet 05/17/16 Pnv#75/Iron Fum/Fa/Om3/Dha/Epa (One A Day Dha Pack) 1 Each Combo..pkg 1 Oral One To Two Times A Day 30 Days 05/02/16 Past Home Medications Medication Directions Ordered Status Acetaminophen/Hydrocodone Bitart ([place] 7.5-325 Tablet) 1 Each Tablet, 1-2 Tab Oral Every 6 Hours as needed for Pain 10/27/13 Discontinued Ibuprofen 200 Mg Tablet, 2 Tab Oral As Needed 11/01/13 Discontinued Nitrofurantoin Monohyd/M-Cryst (Macrobid 100 Mg Capsule) 100 Mg Capsule, 1 Cap Oral Twice Daily With Meals 05/08/16 Discontinued Ondansetron (Ondansetron Odt) 4 Mg Tab.rapdis, 4 Mg Oral Q6h/0300,0900,1500, 2100 for Nausea &/Or Vomiting 10/27/13 Discontinued Social History Social History Problem Response Recorded Date/Time Onset Date Status Hx Substance Use No 05/08/2016 11:32am Not Applicable Not Applicable Hx Alcohol Use No 10/31/2013 2:20pm Not Applicable Not Applicable Has the pt used tobacco in the last 12 months No 05/08/2016 11:32am Not Applicable Not Applicable Tobacco Usage none 10/29/2013 8:37pm Not Applicable Not Applicable Query Response Start Date Stop Date Smoking Status Never smoker Hospital Discharge Instructions Current inpatient/outpatient. Discharge instructions are currently unavailable. Plan of Care Current inpatient/outpatient. The plan of care is currently unavailable Functional Status No functional status results. Allergies, Adverse Reactions, Alerts No known allergies. Immunizations Query Response on File Recorded Date/Time Hx Influenza Vaccination Y NOVEMBER 2015 05/01/16 10:02pm Hx Pneumococcal Vaccination N NOT SURE 05/01/16 10:02pm Hx Tetanus, Diptheria, Pertussis Y given at [facility] 04-26-13 10/27/13 3:07pm Hx Influenza Vaccination Y NOVEMBER 2015 05/01/16 10:02pm Hx Tetanus, Diptheria, Pertussis Y given at [facility] 04-26-13 10/27/13 3:07pm Influenza Vaccine Hx November 2015 @ [facility] 05/08/16 11:32am Tdap Vaccine Hx March 2016 @ [facility] 05/08/16 11:32am Vital Signs Acute Vital Signs Vital Response Date/Time Temperature (Fahrenheit) 98.5 deg F (96.8 - 99.1) 05/17/2016 8:49am Temperature (Calculated Celsius) 36.96795 degrees C (36.0 - 37.3) 05/17/2016 8:49am Pulse Rate (adult) 85 bpm (60 - 100) 05/17/2016 8:49am Respiratory Rate 16 breaths/min (10 - 20) 05/17/2016 8:49am O2 Sat by Pulse Oximetry 98 % (90 - 100) 05/17/2016 8:49am Oxygen Delivery Method Room Air 05/17/2016 8:49am Blood Pressure 110/65 mm Hg 05/17/2016 8:49am Blood Pressure Source Automatic Cuff 05/17/2016 8:49am Height (Feet) 5 feet 05/15/2016 12:13pm Height (Inches) 5.00 inches 05/15/2016 12:13pm Weight (Kilograms) 121.040 kg 05/15/2016 12:13pm Body Mass Index (BMI) 45.1 05/01/2016 9:29pm Results Laboratory Results Test Name Result Units Flags Reference Collection Date/Time Result Date/ Time Comments White Blood Count 14.3 T/MM3 D H 4.5-11.0 05/15/2016 6:52pm 05/15/2016 7: 08pm Red Blood Count 3.70 M/MM3 L 4.00-5.20 05/15/2016 6:52pm 05/15/2016 7: 08pm Hemoglobin 11.9 GM/DL L 12-16 05/15/2016 6:52pm 05/15/2016 7:08pm Hematocrit 35.0 % L 36-46 05/15/2016 6:52pm 05/15/2016 7:08pm Mean Corpuscular Volume 94.6 UM3 80-100 05/15/2016 6:52pm 05/15/2016 7: 08pm Mean Corpuscular Hemoglobin 32.2 UUG 26-34 05/15/2016 6:52pm 2016 7:08pm Mean Corpuscular Hemoglobin Concent 34.0 GM/DL 31-37 05/15/2016 6:52pm 05/15/2016 7:08pm RDW Standard Deviation 45.3 FL 36.9-50.2 05/15/2016 6:52pm 05/15/2016 7 :08pm Platelet Count 274 T/MM3 130-400 05/15/2016 6:52pm 05/15/2016 7:08pm Mean Platelet Volume 10.0 UM3 9.4-12.4 05/15/2016 6:52pm 05/15/2016 7: 08pm Neutrophils % (Manual) 85.0 % H 33-66 05/01/2016 4:52pm 05/01/2016 5: 19pm Band Neutrophils % 3.0 % 0-6 05/01/2016 4:52pm 05/01/2016 5:19pm Lymphocytes % (Manual) 6.0 % L 23-45 05/01/2016 4:52pm 05/01/2016 5: 19pm Monocytes % (Manual) 6.0 % 0-9.0 05/01/2016 4:52pm 05/01/2016 5:19pm Band Neutrophils # 0.5 T/MM3 05/01/2016 4:52pm 05/01/2016 5:19pm Absolute Neutrophils (Manual) 13.7 T/MM3 H 1.8-7.7 05/01/2016 4:52pm 5:19pm Lymphocytes # (Manual) 1.0 T/MM3 1-4.8 05/01/2016 4:52pm 05/01/2016 5: 19pm Monocytes # (Manual) 1.0 T/MM3 H 0-0.8 05/01/2016 4:52pm 05/01/2016 5: 19pm Red Cell Morphology Comment NORMAL 05/01/2016 4:52pm 05/01/2016 5: 19pm Icterus Index < 2 0-7 05/01/2016 4:52pm 05/01/2016 5:08pm Chemistry Specimen Hemolysis < 15 0-25 05/01/2016 4:52pm 05/01/2016 5 :08pm 0-25: Specimen Exhibited No Hemolysis. Turbidity < 20 0-20 05/01/2016 4:52pm 05/01/2016 5:08pm Sodium Level 137 MEQ/L 134-144 05/01/2016 4:52pm 05/01/2016 5:08pm Potassium Level 3.5 MEQ/L L 3.6-5 05/01/2016 4:52pm 05/01/2016 5:08pm Chloride Level 109 MEQ/L H 98-107 05/01/2016 4:52pm 05/01/2016 5:08pm Carbon Dioxide Level 20 MEQ/L L 22-30 05/01/2016 4:52pm 05/01/2016 5: 08pm Anion Gap 8 MEQ/L 5-15 05/01/2016 4:52pm 05/01/2016 5:08pm Blood Urea Nitrogen 4.0 MG/DL L 7-17 05/01/2016 4:52pm 05/01/2016 5: 08pm Creatinine 0.5 MG/DL L 0.7-1.2 05/01/2016 4:52pm 05/01/2016 5:08pm BUN/Creatinine Ratio 8 RATIO 6-05/01/2016 4:52pm 05/01/2016 5:08pm Glomerular Filtration Rate Calc 144 05/01/2016 4:52pm 05/01/2016 5: 08pm Glucose Level 115 MG/DL [...] CLEAR 05/01/2016 4:50pm 05/01/2016 4:59pm Urine Specific Belle <=1.005 L 1.015-1.025 05/01/2016 4:50pm 2016 4:59pm [...] Result Status Urine Culture Urine, Clean Catch-Midstream DIPHTHEROID BACILLUS 05/01/2016 4:50pm 05/03/2016 2:02pm Final STREP AGALACTIAE - (GROUP B) 05/01/2016 4:50pm 05/03/2016 2:02pm Final Procedures Procedure Status Date Provider(s) section Completed 05/15/16 IKER RIOS MD Encounters Encounter Location Arrival/Admit Date Discharge/Depart Date Attending Provider Registered Referred [facility] 05/15/16 1:32pm INFECTION, CONTROL Discharged Inpatient [facility] 05/14/16 4:10pm 05/17/16 2:38pm IKER RIOS MD Discharged Inpatient (obs) [facility] 05/01/16 7:10pm 05/02/16 10 :46am IKER RIOS MD
--- NOTE | 2016-05-29 11:16 | NUR ---
ARRIVAL AMBULATORY TO ROOM 130 WITH SPOUSE. O2 RA. PATIENT AND SPOUSE ORIENTED TO SURROUNDINGS.
[2016-05-29 11:22] VITALS: Ht 165.1 cm; Wt 110.8 kg
[2016-05-29 11:25] VITALS: BP 113/69; PULSE 101; RESP 18; TEMP 97.1; O2SAT 93
[2016-05-29 11:43] LABS: MRSA SPECIMEN NASAL
[2016-05-29] MEDS: NORMAL SALINE 1,000 ML IV SCH ×2 (11:43→20:31)
[2016-05-29] MEDS: CEFTRIAXONE 2 G in NORMAL SALINE 100 ML IV SCH (11:44)
[2016-05-29 11:53] VITALS: PULSE 101; RESP 18
[2016-05-29] MEDS: CLINDAMYCIN 900 MG in D5W 50 ML IV SCH ×2 (12:41→20:31)
[2016-05-29 13:10] LABS: BASOPHILS % (AUTO) 0.2 % (0-2); EOSINOPHILS % (AUTO) 0.3 % (0-4); HCT - HEMATOCRIT 35.1 % (36-46); HGB - HEMOGLOBIN 11.5 GM/DL (12-16); IMMATURE GRANULOCYTE # (AUTO) 0.02 T/MM3 (0.00-0.03); IMMATURE GRANULOCYTE % (AUTO) 0.2 % (0.0-0.5); LYMPHOCYTES # (AUTO) 1.4 T/MM3 (1-4.8); LYMPHOCYTES % (AUTO) 12.3 % (23-45); MEAN CORPUSCULAR HGB 30.6 UUG (26-34); MEAN CORPUSCULAR HGB CONC(MCHC 32.8 GM/DL (31-37); MEAN CORPUSCULAR VOLUME 93.4 UM3 (80-100); MEAN PLATELET VOLUME 8.7 UM3 (9.4-12.4); MONOCYTES # (AUTO) 0.7 T/MM3 (0-0.8); MONOCYTES % (AUTO) 5.9 % (0-9.0); NEUTROPHILS #(AUTO)-ABSOLUTE 9.4 T/MM3 (1.8-7.7); NEUTROPHILS % (AUTO) 81.1 % (33-66); RED BLOOD COUNT 3.76 M/MM3 (4.00-5.20); WBC - WHITE BLOOD COUNT 11.6 T/MM3 (4.5-11.0)
[2016-05-29 13:15] LABS: MRSA SCREEN BY PCR NEGATIVE (NEGATIVE)
[2016-05-29 13:24] LABS: ALBUMIN 3.1 G/DL (3.5-5.0); ALBUMIN/GLOBULIN RATIO 1.1 RATIO (1.1-2.2); ALKALINE PHOSPHATASE 117 U/L (38-126); ALT (SGPT) 33 U/L (9-52); ANION GAP 13 MEQ/L (5-15); AST (SGOT) 16 U/L (14-36); BUN/CREATININE RATIO 21 RATIO (6-26); CALCIUM 8.6 MG/DL (8.4-10.2); CHLORIDE 110 MEQ/L (98-107); CO2 - CARBON DIOXIDE 23 MEQ/L (22-30); CREATININE 0.7 MG/DL (0.7-1.2); GLOMERULAR FILTRATION RATE 98; GLUCOSE 87 MG/DL (65-110); POTASSIUM 3.8 MEQ/L (3.6-5); SODIUM 146 MEQ/L (134-144)
[2016-05-29] MEDS: HYDROCODONE/APAP 5 mg/325 mg TABLET PO PRN ×2 (16:06→21:24)
[2016-05-29 16:07] VITALS: BP 131/81; PULSE 103; RESP 16; TEMP 100.3; O2SAT 96
[2016-05-29 16:57] VITALS: TEMP 99.1
[2016-05-29] MEDS: IBUPROFEN 800 MG TABLET PO PRN (17:10)
--- NOTE | 2016-05-29 17:11 | PNPDOC ---
RETAIL SALES LEAD Progress Note Subjective Today's Date 05/29/16 Sent over from clinic today for worsening cellulitis around her c/s incision. She is PPD 15. She started feeling feverish again about an hour ago. Objective Vitals Vital Signs Date Time Temp Pulse Resp B/P Pulse Ox O2 Delivery O2 Flow Rate FiO2 05/29/16 16:57 99.1 05/29/16 16:07 103 16 131/81 96 Room Air General: Alert and Oriented Appears ill. She continues to have erythema, warmth, induration, and tenderness surrounding her incision. It's not quite as angry-red as it was earlier today. The incision is intact and not draining. Laboratory Item Value Date Time White Blood Count 11.6 T/MM3 H 05/29/16 1253 Hemoglobin 11.5 GM/DL L 05/29/16 1253 Platelet Count 361 T/MM3 05/29/16 1253 Neutrophils (%) (Auto) 81.1 % H 05/29/16 1253 Methicillin-Resist S.aureus DNA PCR Negative 05/29/16 1139 (1) Status post primary low transverse section (2) Wound cellulitis after surgery Assessment & Plan: Culture was obtained in the office. Continue Rocephin and clinda. If things don't improve, she may need to have imaging done to r/o abscess. Questions answered. IKER RIOS MD May 29, 2016 17:10
--- NOTE | 2016-05-29 18:39 | NUR ---
SHIFT SUMMARY PT ALERT AND ORIENTED X3 THIS SHIFT. PT'S PRESENT IN ROOM THIS SHIFT. PT UP AD MATTHEW, STABLE ON FEET. VITAL SIGNS STABLE. PT DID HAVE A LOW GRADE TEMP OF 100.3 THIS AFTERNOON, TREATED WITH PO NORCO AND THEN IBUPROFEN WHEN DUE. TEMP DECREASED TO 99.1 WHEN RECHECKED AN HOUR LATER. PT HAS HAD ADEQUATE INTAKE AND OUTPUT AND AN ADEQUATE DIET. PT REQUESTED AN ICE PACK FOR HER LOWER ABDOMINAL INCISION. ORDERS RECEIVED FROM DR. RIOS FOR THIS. PT REPORTED RELIEF FROM ICE PACK. NO FURTHER COMPLAINTS. WILL CONTINUE TO MONITOR CLOSELY.
[2016-05-29 20:00] VITALS: PULSE 103; RESP 16
[2016-05-30 00:46] VITALS: BP 115/68; PULSE 87; RESP 16; TEMP 98.4; O2SAT 95
[2016-05-30] MEDS: IBUPROFEN 800 MG TABLET PO PRN ×3 (01:06→17:20)
[2016-05-30] MEDS: CLINDAMYCIN 900 MG in D5W 50 ML IV SCH ×3 (04:00→20:47)
[2016-05-30] MEDS: NORMAL SALINE 1,000 ML IV SCH ×2 (05:45→15:24)
--- NOTE | 2016-05-30 06:30 | NUR ---
PROVIDER NOTIFICATION DR MEDEL IS TAKING CALLS FOR DR GABRIEL DR NOTIFIED OF LARGE AMOUNT OF PURULENT DRAINAGE COMING FROM INCISION. DR INSTRUCTED THIS RN TO PLACE A WARM COMPRESS TO ENCOURAGE DRAINAGE. WARM COMPRESS PLACED ALONG WITH A DISPOSABLE FADI TO CATCH DRAINAGE. WILL CONTINUE TO MONITOR.
[2016-05-30 07:23] VITALS: BP 137/86; PULSE 103; RESP 18; TEMP 98.7; O2SAT 96
[2016-05-30] MEDS: HYDROCODONE/APAP 5 mg/325 mg TABLET PO PRN (08:43)
[2016-05-30] MEDS: CEFTRIAXONE 2 G in NORMAL SALINE 100 ML IV SCH (08:43)
[2016-05-30 08:50] VITALS: PULSE 103; RESP 18
--- NOTE | 2016-05-30 10:00 | NUR ---
DRESSING/DRAINAGE DR. MEDEL, WITH THE ASSISTANCE OF THIS RN, PERFORMED A DRAINAGE OF PT'S LOWER ABDOMINAL INCISION ABSCESS. SUPPLIES GATHERED. MODERATE DRAINAGE AND SOME BLOOD CLOTS EXPELLED FROM PT'S INCISION. DR. MEDEL FLUSHED ABSCESS WITH STERILE NORMAL SALINE AND THEN PACKED THE INCISION WITH KERLEX GAUZE ROLL. 4X4 GAUZE AND AN ABD APPLIED OVER TOP AND SECURED WITH FOAM TAPE. PRESENT IN ROOM DURING THIS TIME. PT HOLLERING OUT AND REPORTED PAIN A 10/10 DURING DRAINAGE. NORCO 5/325 X1 AND IBUPROFEN 800MG ADMINISTERED PRIOR TO DRAINAGE. PT REPORTING PAIN A 7/10 AFTER DRAINAGE AND WARM RICE BAG APPLIED OVER GOWN TO LOWER ABDOMEN. PT REPORTED RELIEF FROM THE WARMTH. PT REMAINS IN BED. VITAL SIGNS STABLE ON ROOM AIR. WILL CONTINUE TO MONITOR AND PERFORM DRESSING CHANGES TID PER DR. MEDEL ORDER.
--- NOTE | 2016-05-30 10:39 | PNPDOC ---
Progress Note Date 05/30/16 Pt started draining copious purulent fluid this a.m. She reports good pain control. Afebrile VSS Abd-diffuse erythema surrounding incision, red/white drainage from just right of midline. A/P: See dictated note for drainage of abscess. Cont iv abx through tomorrow a.m., then change to p.o. Dressing changes TID, plan for Home Health after dismissal. NORMA MEDEL MD May 30, 2016 10:39
--- NOTE | 2016-05-30 11:11 | PNF ---
This is a patient of Dr. Delong. DATE 05/30/2016 SUBJECTIVE Ms. Worthy and I discussed her draining abscess at length. We discussed the need to drain that and continue her IV antibiotics for treatment of the cellulitis. Therefore, the area was cleansed with Betadine with the help of the RN. I opened stitches for an area of about 4 cm. A culture was obtained in the deep tissue. Then I used sterile Q-tips to probe the depth and width of the abscess. The fascial layer was intact. The fluid collection seemed to be opened under the incision the entire width of the Pfannenstiel incision. We drained out quite a bit of bloody, purulent fluid. We then irrigated copiously with sterile normal saline. The wound was then packed with a sterile Kerlix gauze. PLAN I have ordered three times daily dressing changes to be packed in the same fashion. We will continue her IV antibiotics for the second 24-hour period. If she remains afebrile at that point, we will plan on switching to p.o. antibiotics and probable dismissal tomorrow. JENELLE
--- NOTE | 2016-05-30 11:19 | NUR ---
CM CM IN TO VISIT WITH PT. SHE IS ALERT AND ORIENTED. SHE IS AWARE THAT DOCTOR IS RECOMMENDING [facility] FOR WOUND CARE ASSISTANCE. SHE IS AGREEABLE TO THIS PLAN. SHE IS GIVEN LIST OF [facility] PROVIDERS. SHE OPTS TO USE [facility]. SHE IS GIVEN CONTACT INFORMATION AND CONTACT INFORMATION FOR [facility]. Addendum: 05/30/16 at 1120 by HANNY MESSINA RN Amended: Links added.
[2016-05-30 11:48] VITALS: PULSE 103; RESP 18; O2SAT 96
[2016-05-30] MEDS: HYDROMORPHONE 2mg/ml INJECTION IV PRN ×2 (17:20→23:42)
[2016-05-30 17:21] VITALS: BP 140/80; PULSE 87; RESP 16; TEMP 98.9; O2SAT 98
[2016-05-30 23:47] VITALS: BP 130/89; PULSE 88; RESP 20; TEMP 98.4; O2SAT 95
[2016-05-31] MEDS: NORMAL SALINE 1,000 ML IV SCH ×3 (00:44→11:45)
[2016-05-31] MEDS: CLINDAMYCIN 900 MG in D5W 50 ML IV SCH (04:51)
--- NOTE | 2016-05-31 05:42 | NUR ---
SHIFT SUMMARY PATIENT IS ALERT AND ORIENTED THIS SHIFT. VITAL SIGNS ARE STABLE ON ROOM AIR. PATIENT IS UP AT MATTHEW. PATIENT HAS DENIED N/V. PAIN HAS BEEN WELL CONTROLLED EXCEPT DURING DRESSING CHANGE. DURING DRESSING CHANGE PATIENT CRIES OUT AND SAYS THAT ADMINISTERED PAIN MEDICATION DOES NOT HELP. OTHERWISE PATIENT HAS SLEPT THROUGH THE NIGHT. SPOUSE IN ROOM. WILL CONTINUE TO MONITOR.
[2016-05-31 07:51] VITALS: BP 137/88; PULSE 72; RESP 18; TEMP 98.5; O2SAT 96
[2016-05-31] MEDS ORDERED: LIDOCAINE 5% TOP PRN (08:00)
[2016-05-31] MEDS ORDERED: AMOXICILLIN/CLAVULANATE 875 MG/125 MG TABLET PO SCH (08:00)
[2016-05-31] MEDS: HYDROMORPHONE 2mg/ml INJECTION IV PRN (08:07)
[2016-05-31] MEDS: IBUPROFEN 800 MG TABLET PO PRN (08:11)
[2016-05-31 09:10] VITALS: PULSE 72; RESP 16
[2016-05-31 09:12] VITALS: RESP 16
--- NOTE | 2016-05-31 10:25 | PNPDOC ---
Progress Note Date 05/31/16 Pt reports feeling much better-except with dressing changes. Topical lidocaine helps a lot. Has had diarrhea x 2, none for several hours. AVSS Abd-no erythema, min induration, dressing intact without staining. Will dismiss to continue po Augmentin at home (pt has this already). RXs for topical lidocaine and [place] provided. Home Health visits are being arranged. She has an appointment in 4 days. C. difficile testing if any further loose stools. Instructions, precautions reviewed, emergency phone numbers discussed. Reymundo&A NORMA MEDEL MD May 31, 2016 10:25
[2016-05-31] MEDS ORDERED: HYDR-4246 PO (10:28)
[2016-05-31] MEDS ORDERED: LIDO15CR11 TOP (10:28)
--- NOTE | 2016-05-31 12:37 | NUR ---
DISCHARGE PT DISCHARGED TO HOME AT THIS TIME IN THE COMPANY OF HER SPOUSE. PT TRANSPORTED TO THE FRONT ENTRANCE BY WHEELCHAIR AND STAFF. PT UNABLE TO HAVE BM FOR CDIFF TESTING PRIOR TO DISCHARGE. DR. MEDEL NOTIFIED AND STATED SHE COULD DISCHARGE HOME, HOWEVER IF DIARRHEA RETURNS, TO HAVE PT NOTIFY OFFICE AND SEND A SAMPLE IN OUTPATIENT SETTING. DISCHARGE INSTRUCTIONS INCLUDING DIET, ACTIVITY, MEDICATIONS, FOLLOW UP APPOINTMENT, REPORTABLE S/S, DI FOR CELLULITIS AND DRESSING CHANGE DEMONSTRATION AND INSTRUCTIONS GIVEN AND REVIEWED WITH PATIENT. PT AND SPOUSE VERBALIZED UNDERSTANDING OF THESE INSTRUCTIONS AND HAD NO FURTHER QUESTIONS. IVL DISCONTINUED. ARMBAND REMOVED. BREAST MILK AND PERSONAL BELONGINGS RETURNED.
--- OUTSIDE RECORDS SUMMARY | 2016-06-01 11:33 | XMS REPORT | Continuity of Care Document ---
Author Author [facility] Organization [facility] Address Unknown Phone Unavailable Support Name Relationship Address Phone IKER RIOS MD Caregiver [address] [place] [address] Unavailable IKER RIOS MD Caregiver [address] [place] [address] Unavailable CINTHIA WORTHY Next Of Kin [address], [place] [address] Insurance Providers Guarantor [employer] Address [address] [place] [address] Email [email or web address] Policy Number [id number] Subscriber's Name Cinthia Worthy Relationship 01 Spouse Group Number [id number] Advance Directives Directive Response Recorded Date/Time Advanced Directives Type None 06/19/13 9:42am Ordered Resuscitation Status Full Code 06/19/13 8:28am Resuscitation Documents on File No 06/19/13 9:42am DPOA for Healthcare Only No 05/29/16 11:24am Living Will No 05/29/16 11:24am Problems Active Problems Medical Problem Onset Date Status Left ureteral calculus Unknown Acute Left ureteral calculus Unknown Acute Wound cellulitis after surgery Unknown Surgical Problem Onset Date Status Status post primary low transverse section Unknown Medications Current Home Medications Medication Dose Units Route Directions Days Qty Instructions Start Date Albuterol Sulfate (Proventil Hfa 90 Mcg/Actuation) 200 Puff/6.7 G Inha 1 Puff Inhalation Every 4 Hours as needed for Asthma 05/02/16 Cetirizine Hcl (Zyrtec) 10 Mg Capsule 1 Cap Oral Daily as needed for Prn Orders 05/02/16 Hydrocodone/Acetaminophen ([place] 5-325 Tablet) 5-325 Tablet 1-2 Tab Oral Every 4 Hours as needed for Pain 30 Tablet 05/31/16 Ibuprofen 800 Mg Tablet 800 Mg Oral Every 8 Hours as needed for Pain 60 Tablet 05/17/16 Lidocaine 15 Gm Cream..g. 1 Applic Topically Every 4 Hours as needed for Pain/Air Hunger 30 Days 60 Gram 05/31/16 Pnv#75/Iron Fum/Fa/Om3/Dha/Epa (One A Day Dha Pack) 1 Each Combo..pkg 1 Oral One To Two Times A Day 30 Days 05/02/16 Past Home Medications Medication Directions Ordered Status Acetaminophen/Hydrocodone Bitart ([place] 7.5-325 Tablet) 1 Each Tablet, 1-2 Tab Oral Every 6 Hours as needed for Pain 10/27/13 Discontinued Docusate Sodium (Colace) 100 Mg Capsule, 1 Cap Oral Twice A Day for Stool Softening 05/17/16 Discontinued Hydrocodone/Acetaminophen ([place] 5-325 Tablet) 5-325 Tablet, 1-2 Tab Oral Every 4 Hours as needed for Pain 05/17/16 Discontinued Ibuprofen 200 Mg Tablet, 2 Tab Oral As Needed 11/01/13 Discontinued Nitrofurantoin Monohyd/M-Cryst (Macrobid 100 Mg Capsule) 100 Mg Capsule, 1 Cap Oral Twice Daily With Meals 05/08/16 Discontinued Ondansetron (Ondansetron Odt) 4 Mg Tab.rapdis, 4 Mg Oral Q6h/0300,0900,1500, 2100 for Nausea &/Or Vomiting 10/27/13 Discontinued Social History Social History Problem Response Recorded Date/Time Onset Date Status Reason for Hospitalization Cellulitis of incision. 2016 10: 43am Not Applicable Not Applicable Hx Substance Use No 05/08/2016 11:32am Not Applicable Not Applicable Hx Alcohol Use No 10/31/2013 2:20pm Not Applicable Not Applicable Has the pt used tobacco in the last 12 months No 05/29/2016 11:27am Not Applicable Not Applicable Tobacco Usage none 10/29/2013 8:37pm Not Applicable Not Applicable Query Response Start Date Stop Date Smoking Status Never smoker Hospital Discharge Instructions Instructions: Care Instructions: Reason for Hospitalization: Cellulitis of incision. I was in the hospital because (patient own words): ANTIBIOTICS FOR CELLULITIS Discharge Diet: Regular Discharge Activity: as instructed Follow Up Appointments: as scheduled, sooner prn Pending Lab / Results: Will review at f/u apt Wound/Incision Care: dressing changes as instructed TID Pain Scale Utilized to Educate Patient: 0-10 Pain Scale Pain Management/Treatment: RXs provided Expected Signs/Symptoms: as reviewed Notify Physician If: any concerns temp > 100.5 During Business Hours:: Please call the physician's office at [phone] After Business Hours:: Please call [phone] and have the vacuum filter operator page the physician. Condition at time of discharge: Good Plan of Care Discharge Date 05/31/16 12:37pm Disposition 01 DISCHARGED HOME, SELF-CARE Instructions/Education Provided Cellulitis (DC) Prescriptions See Medication Section Care Plan and Goals See Discharge Instructions Section Functional Status Query Response Date Recorded Mobility Status Ambulatory 2016 10:43am Assistive Devices None 2016 10:43am Activity Limitations Pain 2016 10:43am Feeding Ability Independent 2016 10:43am Toileting Ability Independent 2016 10:43am Grooming Ability Independent 2016 10:43am Dressing Ability Independent 2016 10:43am Driving Ability Independent 2016 10:43am Housework Ability Independent 2016 10:43am Meal Preparation Ability Independent 2016 10:43am Stair Climbing Ability Independent 2016 10:43am Ability to complete ADL's impeded by No change 2016 10:43am Cognitive/Perceptual Impairments None 2016 10:43am Allergies, Adverse Reactions, Alerts No known allergies. Immunizations Query Response on File Recorded Date/Time Hx Influenza Vaccination Y NOVEMBER 2015 05/29/16 11:27am Hx Pneumococcal Vaccination N NOT SURE 05/29/16 11:27am Hx Tetanus, Diptheria, Pertussis Y given at [facility] 04-26-13 10/27/13 3:07pm Hx Influenza Vaccination Y NOVEMBER 2015 05/29/16 11:27am Hx Tetanus, Diptheria, Pertussis Y given at [facility] 04-26-13 10/27/13 3:07pm Influenza Vaccine Hx fall 201505/29/16 11:51am Tdap Vaccine Hx March 2016 @ [facility] 05/08/16 11:32am Vital Signs Acute Vital Signs Vital Response Date/Time Temperature (Fahrenheit) 98.5 deg F (96.8 - 99.1) 2016 7:51am Temperature (Calculated Celsius) 36.74432 degrees C (36.0 - 37.3) 2016 7:51am Pulse Rate (adult) 72 bpm (60 - 100) 2016 9:10am Respiratory Rate 16 breaths/min (10 - 20) 2016 9:12am O2 Sat by Pulse Oximetry 96 % (90 - 100) 2016 7:51am Oxygen Delivery Method Room Air 2016 7:51am Blood Pressure 137/88 mm Hg 2016 7:51am Blood Pressure Source Automatic Cuff 2016 7:51am Height (Feet) 5 feet 05/29/2016 11:22am Height (Inches) 5.00 inches 05/29/2016 11:22am Weight (Kilograms) 110.800 kg 2016 7:51am Body Mass Index (BMI) 40.0 05/29/2016 11:22am Results Laboratory Results Test Name Result Units Flags Reference Collection Date/Time Result Date/ Time Comments Neutrophils % (Manual) 85.0 % H 33-66 [...] Comment NORMAL 05/01/2016 4:52pm 05/01/2016 5: 19pm Adenovirus (PCR) NEGATIVE NEGATIVE 05/01/2016 4:47pm 05/01/2016 [...] CLEAR 05/01/2016 4:50pm 05/01/2016 4:59pm Urine Specific [place] <=1.005 L 1.015-1.025 05/01/2016 4:50pm 2016 4:59pm [...] MICROSCOPIC NOT IND. 05/01/2016 4:50pm 2016 4:59pm White Blood Count 11.6 T/MM3 H 4.5-11.0 05/29/2016 12:53pm 05/29/2016 1: 10pm Red Blood Count 3.76 M/MM3 L 4.00-5.20 05/29/2016 12:53pm 05/29/2016 1: 10pm Hemoglobin 11.5 GM/DL L 12-16 05/29/2016 12:53pm 05/29/2016 1:10pm Hematocrit 35.1 % L 36-46 05/29/2016 12:53pm 05/29/2016 1:10pm Mean Corpuscular Volume 93.4 UM3 80-100 05/29/2016 12:53pm 05/29/2016 1 :10pm Mean Corpuscular Hemoglobin 30.6 UUG 26-34 05/29/2016 12:53pm 2016 1:10pm Mean Corpuscular Hemoglobin Concent 32.8 GM/DL 31-37 05/29/2016 12:53pm 05/29/2016 1:10pm RDW Standard Deviation 43.9 FL 36.9-50.2 05/29/2016 12:53pm 05/29/2016 1:10pm Platelet Count 361 T/MM3 130-400 05/29/2016 12:53pm 05/29/2016 1:10pm Mean Platelet Volume 8.7 UM3 L 9.4-12.4 05/29/2016 12:53pm 05/29/2016 1: 10pm Neutrophils (%) (Auto) 81.1 % H 33-66 05/29/2016 12:53pm 05/29/2016 1: 10pm Lymphocytes (%) (Auto) 12.3 % L 23-45 05/29/2016 12:53pm 05/29/2016 1: 10pm Monocytes (%) (Auto) 5.9 % 0-9.0 05/29/2016 12:5305/29/2016 1:10pm Eosinophils (%) (Auto) 0.3 % 0-4 05/29/2016 12:53pm 05/29/2016 1:10pm Basophils (%) (Auto) 0.2 % 0-2 05/29/2016 12:53pm 05/29/2016 1:10pm Immature Granulocyte % (Auto) 0.2 % 0.0-0.5 05/29/2016 12:53pm 2016 1:10pm Absolute Neutrophils (auto) 9.4 T/MM3 H 1.8-7.7 05/29/2016 12:53pm 05/29 1:10pm Absolute Lymphocytes (auto) 1.4 T/MM3 1-4.8 05/29/2016 12:53pm 2016 1:10pm Absolute Monocytes (auto) 0.7 T/MM3 0-0.8 05/29/2016 12:53pm 2016 1:10pm Absolute Eosinophils (auto) 0.0 T/MM3 0-0.5 05/29/2016 12:53pm 2016 1:10pm Absolute Basophils (auto) 0.0 T/MM3 0-0.2 05/29/2016 12:53pm 2016 1:10pm Absolute Immature Granulocyte (auto 0.02 T/MM3 0.00-0.03 05/29/2016 12: 53pm 05/29/2016 1:10pm Icterus Index < 2 0-7 05/29/2016 12:53pm 05/29/2016 1:24pm Chemistry Specimen Hemolysis < 15 0-25 05/29/2016 12:53pm 05/29/2016 1:24pm 0-25: Specimen Exhibited No Hemolysis. Turbidity < 20 0-20 05/29/2016 12:53pm 05/29/2016 1:24pm Sodium Level 146 MEQ/L H 134-144 05/29/2016 12:53pm 05/29/2016 1:24pm Potassium Level 3.8 MEQ/L 3.6-5 05/29/2016 12:53pm 05/29/2016 1:24pm Chloride Level 110 MEQ/L H 98-107 05/29/2016 12:53pm 05/29/2016 1:24pm Carbon Dioxide Level 23 MEQ/L 22-30 05/29/2016 12:53pm 05/29/2016 1: 24pm Anion Gap 13 MEQ/L 5-15 05/29/2016 12:53pm 05/29/2016 1:24pm Blood Urea Nitrogen 15.0 MG/DL 7-17 05/29/2016 12:53pm 05/29/2016 1: 24pm Creatinine 0.7 MG/DL 0.7-1.2 05/29/2016 12:53pm 05/29/2016 1:24pm BUN/Creatinine Ratio 21 RATIO 6-26 05/29/2016 12:pm 05/29/2016 1: 24pm Glomerular Filtration Rate Calc 98 05/29/2016 12:5305/29/2016 1: 24pm Glucose Level 87 MG/DL 65-110 05/29/2016 12:53pm 05/29/2016 1:24pm Calculated Osmolality 281 MOSM/KG H 261-280 05/29/2016 12:53pm 2016 1:24pm Calcium Level 8.6 MG/DL 8.4-10.2 05/29/2016 12:53pm 05/29/2016 1:24pm Total Bilirubin 0.50 MG/DL 0.20-1.30 05/29/2016 12:53pm 05/29/2016 1: 24pm Alkaline Phosphatase 117 U/L 38-126 05/29/2016 12:53pm 05/29/2016 1: 24pm Total Protein 6.0 G/DL L 6.3-8.2 05/29/2016 12:53pm 05/29/2016 1:24pm Albumin 3.1 G/DL L 3.5-5.0 05/29/2016 12:53pm 05/29/2016 1:24pm Globulin 2.9 G/DL 2.4-3.6 05/29/2016 12:53pm 05/29/2016 1:24pm Albumin/Globulin Ratio 1.1 RATIO 1.1-2.2 05/29/2016 12:53pm 05/29/2016 1:24pm Aspartate Amino Transf (AST/SGOT) 16 U/L 14-36 05/29/2016 12:53pm 05/29 1:24pm Alanine Aminotransferase (ALT/SGPT) 33 U/L 9-52 05/29/2016 12:53pm 1:24pm MRSA Specimen Source NASAL 05/29/2016 11:39am 05/29/2016 1:15pm Methicillin-Resist S.aureus DNA PCR NEGATIVE NEGATIVE 05/29/2016 11: 39am 05/29/2016 1:15pm Microbiology Results Procedure Source Organism/Result Collection Date/Time Result Date/Time Result Status Urine Culture Urine, Clean Catch-Midstream DIPHTHEROID BACILLUS 05/01/2016 4:50pm 05/03/2016 2:02pm Final STREP AGALACTIAE - (GROUP B) 05/01/2016 4:50pm 05/03/2016 2:02pm Final WOUND CULTURE DEEP TISS-AER/AN Abscess EARLY GROWTH 05/30/2016 10:26am 11:50am Preliminary Procedures Procedure Status Date Provider(s) delivery only Completed 05/14/16 GABRIEL,INEZ WELDON MD, MD EXTRACTION OF POC, LOW CERVICAL, OPEN APPROACH Completed 05/15/16 RIOS, IKER Land MD REPAIR UTERUS, OPEN APPROACH Completed 05/15/16 GABRIEL,IKER Land MD EXCISION OF RIGHT FALLOPIAN TUBE, OPEN APPROACH Completed 05/15/16 IKER RIOS MD INTRODUCTION OF OTH HORMONE INTO PERIPH VEIN, PERC APPROACH Completed IKER RIOS MD DRAINAGE OF AMNIOTIC FL, THERAP FROM POC, VIA OPENING Completed 05/15/16 IKER RIOS MD Routine venipuncture Completed 05/01/16 Metabolic panel total ca Completed 05/01/16 Urinalysis auto w/o scope Completed 05/01/16 Complete cbc w/auto diff wbc Completed 05/01/16 Urine culture/colony count Completed 05/01/16 Culture type immunologic Completed 05/01/16 Microbe susceptible bill Completed 05/01/16 Chylmd pneum dna amp probe Completed 05/01/16 M.pneumon dna amp probe Completed 05/01/16 Resp virus 12- targets Completed 05/01/16 Detect agent nos dna amp Completed 05/01/16 Hydration iv infusion init Completed 05/01/16 Hydrate iv infusion add-on Completed 05/01/16 Hydrate iv infusion add-on Completed 05/01/16 Hydrate iv infusion add-on Completed 05/01/16 Initial observation care Completed 05/01/16 Initial observation care Completed 05/01/16 Initial observation care Completed 05/01/16 [id number]"RINGERS LACTATE INFUSION, UP TO 1000 CC" Completed 05/01/16 [id number]"RINGERS LACTATE INFUSION, UP TO 1000 CC" Completed 05/01/16 [id number]"RINGERS LACTATE INFUSION, UP TO 1000 CC" Completed 05/01/16 [id number]"RINGERS LACTATE INFUSION, UP TO 1000 CC" Completed 05/01/16 [id number]"RINGERS LACTATE INFUSION, UP TO 1000 CC" Completed 05/01/16 Encounters Encounter Location Arrival/Admit Date Discharge/Depart Date Attending Provider Discharged Inpatient [facility] 05/30/16 8:34am 05/31/16 12:37pm IKER RIOS MD Registered Referred [facility] 05/15/16 1:32pm INFECTION, CONTROL Discharged Inpatient [facility] 05/14/16 4:10pm 05/17/16 2:38pm IKER RIOS MD Discharged Inpatient (obs) [facility] 05/01/16 7:10pm 05/02/16 10 :46am IKER RIOS MD
--- OUTSIDE RECORDS SUMMARY | 2016-06-01 11:37 | XMS REPORT | Continuity of Care Document ---
Author Author [facility] Organization [facility] Address Unknown Phone Unavailable Support Name Relationship Address Phone IKER RIOS MD Caregiver [address] [place] [address] Unavailable IKER RIOS MD Caregiver [address] [place] [address] Unavailable CINTHIA WORTHY Next Of Kin [address] [address] Insurance Providers Guarantor [employer] Address [address] [place] [address] Email [email or web address] Policy Number [id number] Subscriber's Name Cinthia Worthy Relationship 01 Spouse Group Number [id number] Advance Directives Directive Response Recorded Date/Time Advanced [...] as needed for Prn Orders 05/02/16 Hydrocodone/Acetaminophen ([place] 5-325 Tablet) 5-325 Tablet 1-2 Tab Oral [...] Medications Medication Directions Ordered Status Acetaminophen/Hydrocodone Bitart ([place] 7.5-325 Tablet) 1 Each Tablet, 1-2 Tab Oral Every 6 Hours as needed for Pain 10/27/13 Discontinued Docusate Sodium (Colace) 100 Mg Capsule, 1 Cap Oral Twice A Day for Stool Softening 05/17/16 Discontinued Hydrocodone/Acetaminophen ([place] 5-325 Tablet) 5-325 Tablet, 1-2 Tab Oral [...] Hours:: Please call the physician's office at [phone] After Business Hours:: Please call [phone] and have the trim master operator page the physician. Condition at time [...] Hx Tetanus, Diptheria, Pertussis Y given at [facility] 04-26-13 10/27/13 3:07pm Hx Influenza Vaccination Y NOVEMBER 2015 05/29/16 11:27am Hx Tetanus, Diptheria, Pertussis Y given at [facility] 04-26-13 10/27/13 3:07pm Influenza Vaccine Hx fall 201505/29/16 11:51am Tdap Vaccine Hx March 2016 @ [facility] 05/08/16 11:32am Vital Signs Acute Vital Signs Vital Response Date/Time Temperature (Fahrenheit) 98.5 deg F (96.8 - 99.1) 2016 7:51am Temperature (Calculated Celsius) 36.26047 degrees C (36.0 - 37.3) 2016 7:51am [...] CLEAR 05/01/2016 4:50pm 05/01/2016 4:59pm Urine Specific [place] <=1.005 L 1.015-1.025 05/01/2016 4:50pm 2016 4:59pm [...] Completed 05/01/16 Initial observation care Completed 05/01/16 [id number]"RINGERS LACTATE INFUSION, UP TO 1000 CC" Completed 05/01/16 [id number]"RINGERS LACTATE INFUSION, UP TO 1000 CC" Completed 05/01/16 [id number]"RINGERS LACTATE INFUSION, UP TO 1000 CC" Completed 05/01/16 265604"RINGERS LACTATE INFUSION, UP TO 1000 CC" Completed 05/01/16 [id number]"RINGERS LACTATE INFUSION, UP TO 1000 CC" Completed 05/01/16 Encounters Encounter Location Arrival/Admit Date Discharge/Depart Date Attending Provider Discharged Inpatient [facility] 05/30/16 8:34am 05/31/16 12:37pm IKER RIOS MD Registered Referred [facility] 05/15/16 1:32pm INFECTION, CONTROL Discharged Inpatient [facility] 05/14/16 4:10pm 05/17/16 2:38pm IKER RIOS MD Discharged Inpatient (obs) [facility] 05/01/16 7:10pm 05/02/16 10 :46am IKER RIOS MD
== END 2016-05-31 12:37 | disposition home or self-care (01) | DRG 776 ==
LOC: SCU 11:08 → SRG 11:08 → UNDOADMOB 11:08 → SRG 15:16 → SCU 05-30 08:33 → SRG 05-30 08:34 → OBSVTOIN 05-30 08:34 → INTOOBSV 05-30 08:34 → UNDODISIN 05-31 12:37 → EDSTATUS 06-01 11:29
PROVIDERS: ADMIT Obstetrics & Gynecology; ATTEND Obstetrics & Gynecology
DX: O86.0 Infection of obstetric surgical wound (principal); L03.311 Cellulitis of abdominal wall
CPT/HCPCS: 36415; 80053; 85025; 87070; 87075; 87076; 87147; 87181; 87205; 87641; 96361; 96365; 96367